=== PATIENT | female | born 1970 | race Caucasian/White ===

== ENCOUNTER → 2024-07-07 14:17 | Outpatient (REF) | payer OTHER, SELFPAY | LOC: HWWDC 14:17 | PROVIDERS: ATTENDING PHYSICIAN Physician Assistant Medical | DX: Z12.31 Encounter for screening mammogram for malignant neoplasm of breast (principal) | CPT/HCPCS: 77063; 77067 ==

== ENCOUNTER → 2024-07-07 15:13 | Outpatient (REF) | payer OTHER, SELFPAY | LOC: RAD 15:13 | PROVIDERS: ATTENDING PHYSICIAN Nurse Practitioner Psychiatric/Mental Health | DX: R00.2 Palpitations (principal) | CPT/HCPCS: 93005 ==